=== PATIENT | female | born 1980 | race Caucasian/White ===

== ENCOUNTER 2017-04-24 02:05 | Emergency (ER) | payer MEDICAID ==
[~2017-04-24] VITALS: Ht 162.6 cm; Wt 76.5 kg
[2017-04-24 02:15] VITALS: Ht 162.6 cm; Wt 76.5 kg
--- NOTE | 2017-04-24 05:00 | RADRPT ---
PROCEDURE: CT brain without contrast. CLINICAL INDICATION: Headache. TECHNIQUE: CT scan of the brain was performed on a multi-detector high-resolution CT scanner. Co ntiguous axial images were obtained from the skull base to the vertex without intravenous contrast. Coronal and sagittal reformatted images were also obtained. Images were reviewed on the PACS works tation. One or more of the following dose reduction techniques were used: - Automated exposure control. - Adjustment of the mA and/or kV according to patient size. - Use of iterative reconstruction technique. Exam CTD/vol = 45.01 mGy. Total exam DLP = 720.23 mGy-cm. COMPARISON: None. FINDINGS: The ventricles and cortical sulci are within normal limits for patient's age. There are no areas of abnormal attenuation within the brain parenchyma. There is no mass effect or midline shift. There is no intracranial hemorrhage or abnormal extra-axial collection. The calvarium is intact. There is no evidence of fracture. Visualized paranasal sinuses and mastoid air cells are clear. IMPRESSION: No acute intracranial abnormality identified. .Glenroy Vila MD, Date Time Electronically viewed and signed by .Glenroy Vila MD, MD on 04/24/2017 04:59 .T/
--- NOTE | 2017-04-24 05:07 | RADRPT ---
PROCEDURE: XR Chest. CLINICAL INDICATION: Chest pain. TECHNIQUE: AP Portable chest. COMPARISON: No pertinent prior examinations were submitted for comparison. FINDINGS: The cardiomediastinal silhouette is normal. The aorta is normal. No focal consolidation, pleural eff usion or pneumothorax is seen. The osseous structures are intact. IMPRESSION: No radiographic evidence of acute cardiopulmonary disease. Physician Stephane Date Time Electronically viewed and signed by Caridad Padgett Physician on 04/24/2017 05:07 LIU/
--- NOTE | 2017-04-24 05:36 | ERD ---
ER Documentation Chief Complaint Chief Complaint CP since yesterday, worse now.CESAR. Lt side weakness, numbness but resolves HPI 36-year-old female presents to emergency department for complaints of left- sided chest pain numbness and tingling, twitching in the left side of the face that started yesterday. Patient describes the pain as sharp pain, 4/10 scale, accompanied with numbness and tingling in the left side of the body in the left lower leg, patient also is complaining of twitching in the face. Patient does admit of going through a lot of stress lately. Patient denies any dyspnea on exertion or dizzy on lying down. Patient denies any dizziness. Patient denies any shortness of breath. ROS All systems reviewed and are negative except as per history of present illness. Medications Home Meds Active Scripts Ibuprofen* (Motrin*) 600 Mg Tab, 600 MG PO Q6H Y for PAIN AND OR ELEVATED TEMP, #30 TAB Prov:FRANCISCO HEALY NP 04/24/17 Alprazolam* (Xanax*) 0.25 Mg Tablet, 0.25 MG PO Q8H Y for ANXIETY, #10 TAB Prov:FRANCISCO HEALY NP 04/24/17 Reported Medications [none] Unknown Strength No Conflict Check 04/24/17 Allergies Allergies: Coded Allergies: No Known Allergy (Unverified , 04/24/17) PMhx/Soc Medical and Surgical Hx: pt denies Medical Hx, pt denies Surgical Hx History of Surgery: No Anesthesia Reaction: No Hx Neurological Disorder: No Hx Respiratory Disorders: No Hx Cardiac Disorders: No Hx Psychiatric Problems: No Hx Miscellaneous Medical Probl: No Hx Alcohol Use: Yes (OCC) Hx Substance Use: No Hx Tobacco Use: No Smoking Status: Never smoker FmHx Family History: No coronary disease, No diabetes, No other Physical Exam Vitals Vital Signs Date Time Temp Pulse Resp B/P Pulse Ox O2 Delivery O2 Flow Rate FiO2 04/24/17 02:15 98.4 75 18 112/65 99 Physical Exam GENERAL: The patient is well developed and appropriate for usual state of health, in no apparent distress. CHEST: Clear to auscultation bilaterally. There are no rales, wheezes or rhonchi. HEART: Regular rate and rhythm. No murmurs, clicks, rubs or gallops. No S3 or S4. ABDOMEN: Soft, nontender and nondistended. Good bowel sounds. No rebound or guarding. No gross peritonitis. No gross organomegaly or masses. No Brasher sign or McBurney point tenderness. BACK: No midline or flank tenderness. EXTREMITIES: Equal pulses bilaterally. There is no peripheral clubbing, cyanosis or edema. No focal swelling or erythema. Full range of motion. Grossly neurovascularly intact. NEURO: Alert and oriented. Cranial nerves 2-12 intact. Motor strength in all 4 extremities with 5/5 strength. Sensation grossly intact. Normal speech and gait. SKIN: There is no apparent rash or petechia. The skin is warm and dry. HEMATOLOGIC AND LYMPHATIC: There is no evidence of excessive bruising or lymphedema. No gross cervical, axillary, or inguinal lymphadenopathy. Result Diagram: 04/24/17 0445 04/24/17 0425 Results 24 hrs Laboratory Tests Test 04/24/17 04:25 04/24/17 04:45 Sodium Level 141mmol/L Potassium Level 3.8mmol/L Chloride Level 106mmol/L Carbon Dioxide Level 26mmol/L Anion Gap 13 Blood Urea Nitrogen 16mg/dl Creatinine 0.91mg/dl Glucose Level 96mg/dl Calcium Level 8.8mg/dl Troponin I < 0.012ng/ml White Blood Count 10.010^3/ul Red Blood Count 4.1810^6/ul Hemoglobin 12.7g/dl Hematocrit 38.4% Mean Corpuscular Volume 91.9fl Mean Corpuscular Hemoglobin 30.4pg Mean Corpuscular Hemoglobin Concent 33.1g/dl Red Cell Distribution Width 13.1% Platelet Count 08487^3/UL Mean Platelet Volume 9.5fl Neutrophils % 55.5% Lymphocytes % 33.9% Monocytes % 8.1% Eosinophils % 1.6% Basophils % 0.4% Nucleated Red Blood Cells % 0.0/100WBC Neutrophils # 5.510^3/ul Lymphocytes # 3.410^3/ul Monocytes # 0.810^3/ul Eosinophils # 0.210^3/ul Basophils # 0.010^3/ul Nucleated Red Blood Cells # 0.010^3/ul PROCEDURE: XR Chest. CLINICAL INDICATION: Chest pain. TECHNIQUE: AP Portable chest. COMPARISON: No pertinent prior examinations were submitted for comparison. FINDINGS: The cardiomediastinal silhouette is normal. The aorta is normal. No focal consolidation, pleural effusion or pneumothorax is seen. The osseous structures are intact. IMPRESSION: No radiographic evidence of acute cardiopulmonary disease. Physician Stephane Date Time Electronically viewed and signed by Physician Stephane on 04/24/2017 05: 07 CS/ CC: FRANCISCO HEALY NP PROCEDURE: CT brain without contrast. CLINICAL INDICATION: Headache. TECHNIQUE: CT scan of the brain was performed on a multi-detector high- resolution CT scanner. Contiguous axial images were obtained from the skull base to the vertex without intravenous contrast. Coronal and sagittal reformatted images were also obtained. Images were reviewed on the PACS workstation. One or more of the following dose reduction techniques were used: - Automated exposure control. - Adjustment of the mA and/or kV according to patient size. - Use of iterative reconstruction technique. Exam CTD/vol = 45.01 mGy. Total exam DLP = 720.23 mGy-cm. COMPARISON: None. FINDINGS: The ventricles and cortical sulci are within normal limits for patient's age. There are no areas of abnormal attenuation within the brain parenchyma. There is no mass effect or midline shift. There is no intracranial hemorrhage or abnormal extra-axial collection. The calvarium is intact. There is no evidence of fracture. Visualized paranasal sinuses and mastoid air cells are clear. IMPRESSION: No acute intracranial abnormality identified. .Glenroy Vila MD, MD Date Time Electronically viewed and signed by .Glenroy Vila MD, MD on 04/24/2017 04:59 .T/ CC: FRANCISCO HEALY NP Adam Procedures/MDM Medical Decision Making: Symptoms of chest pain and headache nonspecific at this time, can be from anxiety. There is low suspicion for cardiopulmonary emergencies at this time. Patient has low risk factors. EKG is normal, there is no changes in the EKG that indicates cardiac emergencies. Chest X-ray does not show cardiopulmonary emergencies at this time. There is low suspicion for aortic aneurysm, myocardial infarction, pneumothorax, pleural effusion, pulmonary embolism, or any other cardiopulmonary emergencies at this time. Patient was advised to follow-up with primary care doctor 1-2 days for reevaluation of symptoms, prescription was given for ibuprofen and Xanax, patient was advised to return to emergency department for any worsening symptoms. Dispostion: Home. Stable Disclaimer: Inadvertent spelling and grammatical errors are likely due to EHR/ dictation software use and do not reflect on the overall quality of patient care. Also, please note that the electronic time recorded on this note does not necessarily reflect the actual time of the patient encounter. Departure Diagnosis: Primary Impression: Atypical chest pain Additional Impressions: Anxiety Headache Headache type: unspecified Headache chronicity pattern: acute headache Intractability: not intractable Qualified Code: R51 - Acute nonintractable headache, unspecified headache type Condition: Stable FRANCISCO HEALY NP Apr 24, 2017 05:34
[2017-04-24] MEDS ORDERED: ALPR0.25 PO (05:58)
[2017-04-24] MEDS ORDERED: IBUP-1542 PO (05:58)
[2017-04-24 06:14] VITALS: BP 118/82; PULSE 70; RESP 18; TEMP 98.5
== END 2017-04-24 06:15 | disposition home or self-care (01) ==
LOC: FTE 02:05
DX: R07.89 Other chest pain (principal); F41.9 Anxiety disorder, unspecified; R51 Headache
CPT/HCPCS: 36415; 70450; 71010; 80048; 84484; 85025; 93005; Z7502